=== PATIENT | male | born 1950 | race Caucasian/White ===

== ENCOUNTER → 2016-05-30 | Outpatient (CLI) | payer OTHER | LOC: BHFA 09:00 | PROVIDERS: ATTEND Internal Medicine Cardiovascular Disease | DX: R55 Syncope and collapse (principal); I47.2 Ventricular tachycardia | CPT/HCPCS: 78452; 93017; A9500; J2785 ==

== ENCOUNTER 2017-06-28 04:48 | Emergency (ER) | payer OTHER, MEDICAID ==
[2017-06-28 04:59] VITALS: BP 137/90; PULSE 82; RESP 18; O2SAT 95
[2017-06-28 05:01] VITALS: TEMP 97.9
--- NOTE | 2017-06-28 05:43 | EDPHY ---
H & P Stated Complaint: found wondering tonight, confused about how long Time Seen by Provider: 06/28/17 04:52 HPI/ROS: HPI The patient presents brought in by the police after he was found wandering in the cold. He could not recall where he lived. He does not have any complaints currently. REVIEW OF SYSTEMS Constitutional: No fever, no chills. Eyes: No discharge. ENT: No sore throat. Cardiovascular: No chest pain, no palpitations. Respiratory: No cough, no shortness of breath. Gastrointestinal: No abdominal pain, no vomiting. Genitourinary: No hematuria. Musculoskeletal: No back pain. Skin: No rashes. Neurological: No headache. PMHx: History of dementia Soc Hx: Housed, family is supposed to be caring for him though is having some difficulty with this, on a waiting list for a memory care unit PHYSICAL General Appearance: Alert, no distress Eyes: Pupils equal and round no pallor or injection ENT, Mouth: Mucous membranes moist Respiratory: There are no retractions, lungs are clear to auscultation Cardiovascular: Regular rate and rhythm Gastrointestinal: Abdomen is soft and non-tender, no masses, bowel sounds normal Neurological: A&O, moves all extremities Skin: Warm and dry, no rashes Musculoskeletal: Neck is supple non tender Extremities: symmetrical, full range of motion Psychiatric: there is no agitation Source: Patient, EMS Exam Limitations: Physical impairment - Personal History Current Tetanus/Diphtheria Vaccine: Yes Current Tetanus Diphtheria and Acellular Pertussis (TDAP): Yes - Medical/Surgical History Hx Asthma: No Hx Chronic Respiratory Disease: No Hx Diabetes: No Hx Cardiac Disease: No Hx Renal Disease: No Hx Cirrhosis: No Hx Alcoholism: No Hx HIV/AIDS: No Hx Splenectomy or Spleen Trauma: No Other PMH: denies - Social History Smoking Status: Never smoked Constitutional: Initial Vital Signs Temperature (C) 36.6 C 06/28/17 04:52 Heart Rate 82 06/28/17 04:52 Respiratory Rate 18 06/28/17 04:52 Blood Pressure 137/90 H 06/28/17 04:52 O2 Sat (%) 95 06/28/17 04:52 O2 Delivery Mode Room Air Allergies/Adverse Reactions: No Allergies [NKDA] Allergy (Verified 12/24/13 23:45) Home Medications: Medication Instructions Recorded Aspirin EC [Aspirin EC 81 mg (*)] 81 mg PO DAILY #30 tab 12/25/13 Ibuprofen [Advil] 200 - 400 mg PO BID PRN 12/25/13 Citalopram Hydrobromide [Celexa] 40 mg PO 06/28/17 Mecobalamin [B-12] 1,000 mcg SL 06/28/17 Medical Decision Making Differential Diagnosis: This is a 67-year-old male with dementia who was found wandering by the police [place]. The patient says he has been out since this morning. He left his house to get breakfast and was not able to find his way home. We have contacted family and they are having some difficulty in providing him care at home. He is on a waiting list from memory care unit. He will be picked up. Our charge nurses has placed a referral to the case picker to aid in placement if possible Departure - Departure Disposition: Home, Routine, Self-Care Clinical Impression: Dementia Qualifiers: Dementia type: unspecified type Dementia behavioral disturbance: with behavioral disturbance Qualified Code(s): F03.91 - Unspecified dementia with behavioral disturbance Condition: Good Instructions: Fall Prevention for Older Adults (ED) Additional Instructions: Please return to the emergency department if your worse in any way. Referrals: NAMRATA HICKS [Primary Care Provider] - As per Instructions
--- NOTE | 2017-06-29 15:16 | ASMTCMCOM ---
CM Note CM Note Notes: Pt was transported to the Emergency Department by the [facility]. Pt was found wandering outside, lost and cold. Asked to follow up with pt and family after discharge by Dr. Dobson. Per notes, pt needs immediate placement in a memory care unit. Chart reviewed. Pt has Medicaid and Medicare. Medical history includes frontal lobe dementia/Alzheimers. Phone numbers obtained for family: Dghtr Mally Wright [id number] Sil Wright Ex- Laura Pfeiffer This CM attempted to contact family on Saturday06/28/17. No answer on [id number]'s phone number. Voice mailbox full on dghtr's phone. Attempted to reach family again today. Dghtr's voice mailbox remains full, no answer. Spoke with Sil Wright, [id number] . Per Sil, pt's dghtr aMlly is out of town this week so she is helping in her absence. Mally lives in [place], but has been staying in [place] with her dad. Mally plans to stay in [place] until the housing issues have been resolved. The pt's ex- Laura, lives in [place] and is largely uninvolved in the pt's care. Per Sil, the pt lives independently and receives assistance from [facility] 3 days/week. The pt is currently on a waiting list for [facility] in [place]. The Medicaid LTC application has been submitted and accepted, they are just waiting for a spot to open up. Sil states that the family has also looked at [facility] in [place], but "did not care for the facility." The family has also picked up an application for the [facility] in [facility], although the paperwork has not been submitted yet. Sil says the pt has lots of good family support and is well taken care of. The wandering behaviors are new and the family is trying to figure out how to best help the pt. Provided Sil with additional information on Medicaid secure/locked units/facilities in the area - [facility] in [place], [facility] in [facility] (which uses noise alarm systems), and [facility]. Sil says the family has already applied to [facility]. Per Sil, the pt was initially accepted, was given a room and then the facility declined him without explanation at the last minute, just before move-in. Encouraged Sil to talk to [facility] regarding an application for home and community based services (HCBS). Sil is unsure if the services they receive through [facility] are HCBS based. Sil to contact Human Services for further info. Offered Sil a list of secure/locked units in area. Sil also provided with the ED CM phone number for further questions or concerns. CM available for any issues or needs. Date Signed: 06/29/2017 03:11 PM Electronically Signed By:Nelly Pierce RN
== END 2017-06-28 06:57 | disposition home or self-care (01) ==
DX: F03.91 Unspecified dementia, unspecified severity, with behavioral disturbance (principal); Z79.82 Long term (current) use of aspirin